=== PATIENT | male | born 1995 | race Caucasian/White ===

== ENCOUNTER 2019-11-22 01:19 | Emergency (ER) | payer OTHER | END 2019-11-22 04:30 | disposition other institution (70) | LOC: ED 01:19 | DX: Z02.89 Encounter for other administrative examinations (principal) | CPT/HCPCS: J2001 ==

== ENCOUNTER 2019-11-22 01:19 | Emergency (ER) | payer SELFPAY ==
[~2019-11-22] VITALS: Ht 167.6 cm; Wt 113.4 kg
[2019-11-22 01:28] VITALS: Ht 167.6 cm; Wt 113.4 kg
[2019-11-22 04:30] VITALS: BP 141/68
== END 2019-11-22 04:30 | disposition other institution (70) ==
LOC: ED 01:19
DX: S02.652A Fracture of angle of left mandible, initial encounter for closed fracture (principal); S01.81XA Laceration without foreign body of other part of head, initial encounter; R42 Dizziness and giddiness; R51 Headache; M54.2 Cervicalgia; Y04.2XXA Assault by strike against or bumped into by another person, initial encounter; Y93.89 Activity, other specified; Y92.89 Other specified places as the place of occurrence of the external cause; Y99.8 Other external cause status
CPT/HCPCS: J1885